=== PATIENT | female | born 1995 | race Caucasian/White ===

== ENCOUNTER → 2017-06-22 | Outpatient (CLI) | payer OTHER ==
[~2017-06-22] MED LIST: ACYC400 PO; ALBU90OI INH; Amoxicillin500 MG PO; Bactrim Ds Tab1 EACH PO; Benadryl 50 mg50 MG PO; CEPH250A PO; DEXT30SU PO; Diflucan100 MG PO; FLUC150A PO; IBUP800 PO; Keflex500 MG PO; MONISTAT 744 GM VG; Naprosyn500 MG PO; Norco 5-325 Ta1 EACH PO; OMEP40CA12 PO; OXYACE5T PO; PREN-16 PO; Pepcid20 MG PO; Peridex480 ML PO; Prednisone10 MG PO; Pyridium200 MG PO; SULTRIDS PO; TRAACE PO; TRIA80TC TOP; Veetids 500500 MG PO; [UNRECOGNIZED DRUG - REMARK]
[2017-06-22 18:32] LABS: Specimen Source CX
[2017-06-23 13:53] LABS: Source CX
== END | disposition home or self-care (01) ==
LOC: LAB EV 18:30
PROVIDERS: Physician Assistant Medical
DX: N76.0 Acute vaginitis (principal)
CPT/HCPCS: 87070; 87147; 87205; 87491; 87591

== ENCOUNTER 2022-08-02 21:07 | Emergency (ER) | payer OTHER ==
[~2022-08-02] VITALS: Ht 157.5 cm; Wt 99.8 kg
[2022-08-02 22:15] VITALS: BP 123/58
[2022-08-02] MEDS ORDERED: CEPH500 PO (22:28)
[2022-08-02] MEDS ORDERED: Diflucan100 MG PO (22:28)
== END 2022-08-02 22:32 | disposition home or self-care (01) ==
LOC: ER 21:07
DX: S70.312A Abrasion, left thigh, initial encounter (principal); W26.8XXA Contact with other sharp object(s), not elsewhere classified, initial encounter; Z79.899 Other long term (current) drug therapy
CPT/HCPCS: 99282